=== PATIENT | male | born 1990 | race Two or more races ===

== ENCOUNTER 2022-11-05 13:28 | Emergency (ER) | payer SELFPAY ==
[~2022-11-05] VITALS: Ht 172.7 cm; Wt 71.7 kg
[2022-11-05 13:36] VITALS: BP 124/61; TEMP 98.1
[2022-11-05 15:05] LABS: CALCIUM, SERUM 8.7 mg/dL (8.5-10.1); CREATININE 0.9 mg/dL (0.6-1.3); POTASSIUM 4.4 mmol/L (3.5-5.1)
[2022-11-05 15:13] LABS: BASOPHILS % (AUTO) 0.4 % (0.0-2.0); EOSINOPHILS # (AUTO) 0.3 K/uL (0.0-0.7); EOSINOPHILS % (AUTO) 4.4 % (0.0-6.0); HEMATOCRIT 42 % (39-51); HEMOGLOBIN 13.4 g/dL (13.5-17.5); LYMPHOCYTES # (AUTO) 1.6 K/uL (0.8-4.8); LYMPHOCYTES % (AUTO) 22.3 % (20.0-44.0); MEAN CORPUSCULAR HEMOGLOBIN 28 PG (26.0-33.0); MEAN CORPUSCULAR HGB CONC 32 g/dl (31.0-36.0); MEAN CORPUSCULAR VOLUME 87 fL (80-96); MONOCYTES # (AUTO) 0.5 K/uL (0.1-1.30); MONOCYTES % (AUTO) 7.3 % (2.0-12.0); NEUTROPHILS # (AUTO) 4.7 K/uL (1.8-8.9); NEUTROPHILS % (AUTO) 65.6 % (43.0-81.0); PLATELET COUNT (AUTO) 234 K/uL (150-450); RED BLOOD CELL COUNT(AUTO) 4.75 MIL/uL (4.5-6.0); RED CELL DISTRIBUTION WIDTH 14.5 % (11.5-15.0); WHITE BLOOD COUNT (AUTO) 7.2 K/uL (4.3-11.0)
[2022-11-05 15:20] LABS: THYROID STIMULATING HORMONE 1.756 uIU/mL (0.358-3.74)
[2022-11-05 16:30] VITALS: O2SAT 100
== END 2022-11-05 16:31 | disposition home or self-care (01) ==
LOC: ER 13:34
DX: M79.674 Pain in right toe(s) (principal); Z59.00 Homelessness unspecified
CPT/HCPCS: 36415; 73630-TC; 80048-TC; 82550-TC; 84443-TC; 85025-TC